=== PATIENT | male | born 1950 | race Caucasian/White ===

== ENCOUNTER 2017-12-09 06:50 | Day surgery (SDC) | payer OTHER ==
--- NOTE | 2017-11-30 08:51 | NUR ---
PATIENT HERE TODAY TO PREADMIT. EKG DONE THAT SHOWS A-FIB. PATIENT DENIES ANY FUNNY FEELING OF BEING TIRED, SOB, IRREGULAR HEART BEAT. PATIENT STATES I TAKE THOSE MEDICATIONS SO I GUESS I HAVE SOMETHING WRONG WITH MY HEART. UNSURE IF HE HAS A HISTORY OF A-FIB. PATIENT REFUSED TO GO TO THE ER. STATES HE SEE'S DR RECINOS AT THE [place] TOMORROW. DR SANTIZO OFFICE NOTIFIED AND EKG SENT TO THE OFFICE.
[~2017-12-09] VITALS: Ht 188 cm; Wt 87.1 kg
[~2017-12-09 06:50] MED LIST: CIPRO500 MG PO; DIGOXIN250 MCG PO; LANOXIN250 MCG PO; LIPITOR20 MG PO; NORCO 5-325 TA1 EACH PO; ONCE DAILY1 EACH PO; WARFARIN SODIUM5 MG PO
--- NOTE | 2017-12-09 08:42 | NUR ---
12/09/17 0842 Sue Dodson 0873-PATIENT ARRIVED TO PACU AWAKE ON RA O2 SAT 98% LAYING LEFT LATERAL. DENIES PAIN OR NAUSEA. ABDOMEN SOFT ENCOURAGED TO PASS FLATUS. AFIB HR 70'S.
--- NOTE | 2017-12-10 07:54 | OR ---
[facility] [address], [place] [address] Signed DATE OF OPERATION: 12/09/2017 SURGEON: Cecil Ram MD PREOPERATIVE DIAGNOSIS: Screening. POSTOPERATIVE DIAGNOSES: 1. 5 mm polyp x3 in proximal right colon. 2. Minimal to moderate internal hemorrhoids. PROCEDURE: Colonoscopy with hot biopsy. ESTIMATED BLOOD LOSS: None. INDICATIONS: Lenore is a 67-year-old gentleman, asked to see me for what appears to be his initial colonoscopy. He thought maybe he had a colonoscopy in 2013 where he was at [facility] for his ischemic bowel. He said it took out a part of his small intestine. 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 He quit smoking about five months ago. He says he has no lower GI complaints. There is no family history of colon cancer or polyps. I met with Lenore in the office and I gave him a pamphlet on colonoscopy and we discussed the nature of the test along with the risks including, but not limited to gas bloating, crampy abdominal pain, bleeding, perforation requiring surgery and missed diagnosis. We also discussed the need for IV conscious sedation. Given his advanced vascular disease and his lung disease, we asked that an anesthesia provider help us with increased monitoring and sedation with propofol. He had expressed understanding and wished to proceed. PROCEDURE NOTE: Lenore was taken into our endoscopy suite and placed in the left lateral decubitus position. He was given IV sedation with propofol per our nurse sales representative health insurance. A digital rectal exam was performed and he does have an indurated and enlarged prostate. The right side seems more prominent than the left. He might review that with his primary care provider. The adult colonoscope was introduced and advanced all around into the cecum under direct visualization of camera without difficulty. His prep was good. The scope was then slowly withdrawn. We found three polyps in the right colon. We removed Electronically Signed By: CECIL RAM MD 12/10/17 0754 PATIENT NAME: LENORE LOPEZ OPERATIVE REPORT DATE OF : 50 REPORT #: [id number] PHYSICIAN: CECIL RAM MD PCP: PEDRO PABLO RECINOS MD REPORT IS CONFIDENTIAL AND NOT TO BE RELEASED WITHOUT AUTHORIZATION [address] [address] Signed all those with the hot biopsy forceps. The rest of the colon and rectum were unremarkable. Upon retroflexion of scope in the rectum, he does have [id number] internal hemorrhoid tissue. After this, the gas was suctioned out. The colonoscope removed. Lenore tolerated the procedure quite well. RECOMMENDATIONS: I will see Lenore back in my office in 7 to 14 days to review his results. He can resume the Coumadin in one week. MD ZAHRA Curtis/GISELEL /[id number] cc: MD Pedro Pablo Curtis MD Copies: CECIL RAM MD, DELWYN MD ~ Electronically Signed By: CECIL RAM MD 12/10/17 0754 PATIENT NAME: LENORE LOPEZ OPERATIVE REPORT DATE OF : 50 REPORT #: [id number] PHYSICIAN: CECIL RAM MD PCP: PEDRO PABLO RECINOS MD REPORT IS CONFIDENTIAL AND NOT TO BE RELEASED WITHOUT AUTHORIZATION
== END 2017-12-09 09:20 | disposition home or self-care (01) ==
LOC: OPS 06:50 → DS 06:50 → OPS 08:15 → DS 09:00 → OPS 09:00
PROVIDERS: Colon & Rectal Surgery
PROC: 0DBF8ZZ Excision of Right Large Intestine, Via Natural or Artificial Opening Endoscopic (ICD-10-PCS; principal; 2017-12-09 08:15)
DX: Z12.11 Encounter for screening for malignant neoplasm of colon (principal); D12.2 Benign neoplasm of ascending colon; K64.8 Other hemorrhoids; Z87.891 Personal history of nicotine dependence; Z79.01 Long term (current) use of anticoagulants; Z79.899 Other long term (current) drug therapy
CPT/HCPCS: 88305; J2704; J7120